=== PATIENT | female | born 1990 | race Caucasian/White ===

== ENCOUNTER → 2022-06-17 | Outpatient (CLI) | payer BC | END | disposition home or self-care (01) | LOC: LABWHC1 13:58 | PROVIDERS: ATTEND Obstetrics & Gynecology | DX: Z36.9 Encounter for antenatal screening, unspecified (principal) | CPT/HCPCS: 36415; 82950 ==

== ENCOUNTER 2022-09-26 14:09 | Inpatient (IN) | payer BC ==
[2022-10-01] MEDS: LACTATED RINGERS 1,000 ML IV SCH ×4 (06:28→22:00)
[2022-10-01] MEDS ORDERED: TRANEXAMIC ACID IN NACL,ISO-OS 1,000 MG in EMPTY BAG 1 BAG IV PRN ×2 (06:33→19:10)
[2022-10-01] MEDS ORDERED: METHYLERGONOVINE 0.2 MG/ML 1 ML AMP IM PRN ×2 (06:33→19:10)
[2022-10-01] MEDS ORDERED: LIDOCAINE 0.5% (PF) 5 MG/ML (50 ML SDV) SQ PRN (06:33)
[2022-10-01] MEDS ORDERED: miSOPROStoL 200 MCG TAB PO PRN ×2 (06:33→19:10)
[2022-10-01] MEDS ORDERED: OXYTOCIN 10 UNIT/ML 1 ML VIAL IM PRN ×2 (06:33→19:10)
[2022-10-01] MEDS ORDERED: TERBUTALINE 1 MG/ML VIAL SQ PRN (06:33)
[2022-10-01] MEDS ORDERED: CARBOPROST TROMETHAMINE 250 MCG/ML 1 ML AMP IM PRN ×2 (06:33→19:10)
[2022-10-01 06:42] LABS: Basophils # (A) 0.1 k/uL (0-0.2); Basophils % (A) 1 %; Eosinophils # (A) 0.4 k/uL (0-0.7); Eosinophils % (A) 3 %; HCT 37.2 % (34.0-46.0); HGB 12.8 gm/dL (11.4-16.0); Lymphocytes # (A) 2.4 k/uL (1.0-4.8); Lymphocytes % (A) 20 %; MCH 31.1 pg (25.0-35.0); MCHC 34.5 g/dL (31.0-37.0); Mean Platelet Volume 7.2; Monocytes # (A) 0.7 k/uL (0-1.0); Monocytes % (A) 6 %; Neutrophils # (A) 8.3 k/uL (1.3-7.7); Neutrophils % (A) 69 %; Platelet Count 277 k/uL (150-450); RBC 4.13 m/uL (3.80-5.40); RDW 13.5 % (11.5-15.5); WBC 12.1 k/uL (3.8-10.6)
[2022-10-01] MEDS ORDERED: OXYTOCIN 30 UNITS/500 ML NS 30 UNIT in SALINE 1 500ML.BAG IV SCH (06:45)
--- NOTE | 2022-10-01 08:05 | P.HPOB ---
History of Present Illness H&P Date: 10/01/22 Chief Complaint: Here for induction of labor at 40-4/7 weeks' This is a pleasant 32-year-old 1 para 0 EDC 09/27/2022 at 40-4/7 weeks' gestation who presents today for induction of labor. She is having mild irregular uterine contractions. She denies fluid leakage or vaginal bleeding. Fetus is been active throughout the . Current medications vitamins daily, baby aspirin daily. Past surgical history hysterosalpingogram in the past. Past medical history PCO OS. ALLERGIES none known. Family history significant for hypertension, arthritis, skin cancer, PCO OS. 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 history blood type is O+, rubella status immune. VDRL testing, urine culture, hepatitis B surface antigen, gonorrhea and chlamydia cultures, HIV testing, group B strep cultures all negative. One-hour Glucola 131. Estimated weight 43rd percentile. On exam patient is 5 foot 4 inches, 184 pounds, vital signs are stable and she is afebrile. General physical exam is within normal limits. Cervix is 1 cm dilated, 70% effaced, -2 station, vertex presentation. Artificial amniorrhexis reveals clear fluid. heart rate is consistent with reactive NST. Plan: 40-4/7 weeks intrauterine , here for induction of labor, all signs reassuring. Plan close maternal and surveillance. Oxytocin per hospital protocol. Analgesic options reviewed. Anticipate normal spontaneous vaginal delivery. Review of Systems Constitutional: Reports as per HPI Past Medical History Past Medical History: No Reported History History of Any Multi-Drug Resistant Organisms: None Reported Past Surgical History: No Surgical Hx Reported Past Psychological History: No Psychological Hx Reported Smoking Status: Never smoker Medications and Allergies Home Medications Medication Instructions Recorded Confirmed Type Aspirin [[place] Aspirin EC] 81 mg PO 10/01/22 History Vit No.179/Iron/Folic 1 each PO 10/01/22 History [ Tablet] Allergies Allergy/AdvReac Type Severity Reaction Status Date / Time No Known Allergies Allergy Verified 10/01/22 06:32 Exam Vital Signs Temp Pulse Resp BP Pulse Ox 10/01/22 06:31 97.2 F L 104 H 16 138/87 100 Intake and Output 09/30/22 10/01/22 10/01/22 22:59 06:59 14:59 Other: Weight 83.461 kg See dictation under HPI please Results Result Diagrams: 10/01/22 06:30 Abnormal Lab Results - Last 24 Hours (Table) 10/01/22 Range/Units 06:30 WBC 12.1 H (3.8-10.6) k/uL Neutrophils # 8.3 H (1.3-7.7) k/uL Assessment and Plan Assessment: 40-4/7 weeks intrauterine , here for induction of labor. All signs reassuring. Plan: Analgesic options thoroughly reviewed. Oxytocin per hospital protocol. Close maternal and surveillance. Anticipate normal spontaneous vaginal delivery. Time with Patient: Less than 30
[2022-10-01] MEDS ORDERED: BUTORPHANOL 2 MG/ML 1 ML VIAL IV PRN (08:28)
[2022-10-01] MEDS ORDERED: fentaNYL (PF) 50 MCG/ML 5 ML AMP ONE (14:27)
[2022-10-01] MEDS ORDERED: SODIUM CHLORIDE 0.9% 100 ML BAG ONE ×2 (14:27→18:52)
[2022-10-01] MEDS ORDERED: ROPIVACAINE 5 MG/ML 20 ML AMPULE ONE (14:27)
[2022-10-01] MEDS ORDERED: CITRIC ACID-SODIUM CITRATE 15 ML CUP PO ONE ×2 (18:41→19:10)
[2022-10-01] MEDS ORDERED: ceFAZolin 1,000 MG VIAL ONE (18:52)
[2022-10-01] MEDS ORDERED: MORPHINE SULFATE (PF) 0.3 MG/0.3 ML SYR ONE (18:52)
[2022-10-01] MEDS ORDERED: LIDOCAINE HCL/PF 20 MG/ML 10 ML AMP ONE (18:52)
[2022-10-01] MEDS ORDERED: METHYLERGONOVINE 0.2 MG/ML 1 ML AMP ONE (18:52)
[2022-10-01] MEDS ORDERED: KETOROLAC 30 MG/ML 1 ML VIAL ONE (18:52)
[2022-10-01] MEDS ORDERED: ONDANSETRON 4 MG/2 ML VIAL ONE (18:52)
[2022-10-01] MEDS ORDERED: OXYTOCIN 10 UNIT/ML 1 ML VIAL ONE (18:52)
--- NOTE | 2022-10-01 19:44 | P.OP ---
Date of Procedure: 10/01/22 Preoperative Diagnosis: 40-4/7 weeks intrauterine , arrest of dilatation and descent. Postoperative Diagnosis: Same, liveborn male , left occiput transverse, nuchal cord 1. Procedure(s) Performed: Primary low transverse section Anesthesia: epidural Surgeon: Karen Silva Rn Access #1: Kwaku Pires Estimated Blood Loss (ml): 650 IV fluids (ml): 1,000 Urine output (ml): 200 Pathology: none sent Condition: stable Disposition: PACU Indications for Procedure: Arrest of dilation for 4 hours, active labor, 40-4/7 weeks' Operative Findings: Liveborn male , 8 lbs. 4 oz., 3750 g, left occiput transverse position. Normal-appearing tubes and ovaries bilaterally. Nuchal cord 1 Description of Procedure: Patient is brought to the operating suite where the epidural previously placed was topped off. Vaginal prep is done, abdomen is prepped and draped in usual sterile fashion. Antibiotics given. The appropriate timeout is performed to assure the proper patient and procedural identification. Analgesia is checked and noted to be adequate. A low transverse skin incision is made in this is carried down through the subcutaneous tissue to the fascia. Fascia is isolated, scored, extended bilaterally with curved Mustafa scissors. Peritoneum is next identified and incised, there is no bowel or bladder involvement. Bladder blade is placed over the bladder to keep the bladder from the operative field. A low transverse uterine incision is made in this is extended bluntly. The 's head is delivered in the left occiput transverse position. There is a tight nuchal cord 1 that was reduced. The oropharynx, nasopharynx, and external nares were all bulb suctioned thoroughly. Patient was officially delivered of a liveborn male infant at 1904 hrs. Umbilical cord was doubly clamped and ligated, he was handed to waiting nurses for evaluation where scores of 9 and 9 at one and 5 minutes respectively were given. Placenta delivered manually, it was inspected and noted to be intact with trivascular cord at 1905 hrs. Uterus is then externalized and massaged. Oxytocin is given, however the uterus is still atonic and therefore Methergine was given 1 with excellent response. The uterus is swept clean with a sterile sponge to avoid any retained products of conception. It is closed in a two-step fashion, first layer running locking, second layer imbricated, both with 0 Vicryl suture. The uterus is suction posteriorly with the suction on guard and then gently placed back into the abdomen. Bilateral gutters are inspected and cleaned. Peritoneum was allowed to close by secondary intention. Fascia is closed in a running stitch of 0 Vicryl with over ligation in the midline. Subcutaneous tissue is irrigated, clean and dry. It is reapproximated with 2-0 Vicryl in a running stitch. 4-0 undyed Monocryl is used for final skin closure. Steri- Strips and Mastisol are applied to the wound. All sponge needle and enhancement counts are correct. Estimated blood loss 650 mL, fluid replacement 1000 mL, pulse 80, blood pressure 120/70. Duramorph is placed in the epidural prior to leaving the operative suite. Patient is requesting circumcision for her infant son.
[2022-10-01] MEDS ORDERED: diphenhydrAMINE 25 MG CAP PO PRN (19:45)
[2022-10-01] MEDS ORDERED: NALOXONE 0.4 MG/ML 1 ML VIAL IV PRN (19:45)
[2022-10-01] MEDS ORDERED: ONDANSETRON 4 MG/2 ML VIAL IVP PRN (19:45)
[2022-10-01] MEDS ORDERED: diphenhydrAMINE 50 MG CAP PO PRN (19:45)
[2022-10-01] MEDS ORDERED: diphenhydrAMINE 50 MG/ML 1 ML VIAL IVP PRN ×2 (19:45)
[2022-10-01] MEDS ORDERED: METOCLOPRAMIDE 5 MG/ML 2 ML VIAL IVP PRN (19:45)
[2022-10-01] MEDS ORDERED: ZOLPIDEM 5 MG TAB PO PRN (19:45)
[2022-10-01] MEDS: SENNOSIDES-DOCUSATE SODIUM 1 EACH TAB PO SCH (22:18)
[2022-10-01] MEDS: ACETAMINOPHEN TAB 500 MG TAB PO SCH (22:19)
[2022-10-02] MEDS: IBUPROFEN 600 MG TAB PO SCH ×4 (02:00→20:14)
[2022-10-02] MEDS: ACETAMINOPHEN TAB 500 MG TAB PO SCH ×4 (05:40→23:41)
[2022-10-02] MEDS: LACTATED RINGERS 1,000 ML IV SCH ×2 (05:55→13:34)
[2022-10-02 05:58] LABS: Basophils % (A) 0 %; Eosinophils # (A) 0.2 k/uL (0-0.7); Eosinophils % (A) 1 %; HCT 28.7 % (34.0-46.0); Lymphocytes # (A) 1.6 k/uL (1.0-4.8); Lymphocytes % (A) 13 %; MCH 30.5 pg (25.0-35.0); MCV 89.8 fL (80.0-100.0); Mean Platelet Volume 7.5; Monocytes # (A) 0.6 k/uL (0-1.0); Monocytes % (A) 5 %; Neutrophils # (A) 9.9 k/uL (1.3-7.7); Neutrophils % (A) 79 %; Platelet Count 218 k/uL (150-450); WBC 12.5 k/uL (3.8-10.6)
[2022-10-02 06:18] LABS: HGB 9.8 gm/dL (11.4-16.0)
[2022-10-02] MEDS: SENNOSIDES-DOCUSATE SODIUM 1 EACH TAB PO SCH ×2 (08:02→20:14)
--- NOTE | 2022-10-02 08:07 | P.PN ---
Subjective Progress Note Date: 10/02/22 Principal diagnosis: Doing well first postoperative day Slept well. Minimal pain. Minimal vaginal drainage. Positive flatus. Hungry Objective - Vital Signs Vital signs: Vital Signs Temp 97.9 F 10/02/22 04:00 Pulse 76 10/02/22 04:00 Resp 16 10/02/22 04:00 BP 110/71 10/02/22 04:00 Pulse Ox 98 10/02/22 04:00 FiO2 Intake & Output 10/01/22 10/02/22 10/02/22 18:59 06:59 18:59 Intake Total 100 Output Total 2915 Balance -2815 Intake: Intake, IV Titration 100 Amount Oxytocin 30 Units/500 ml 100 Ns 30 unit In Saline 1 500ml.bag @ Per Protocol IV .Q0M [facility] Rx#:[id number] Output: Urine 1650 Uretheral (Adan) 200 Output, Quantitative 1265 Blood Loss Other: Voiding Method Indwelling Catheter # Voids 2 350 - Constitutional General appearance: Present: average body habitus, cooperative - EENT Eyes: Present: PERRLA ENT: Present: hearing grossly normal - Neck Carotids: bilateral: upstroke normal - Respiratory Respiratory: bilateral: CTA - Cardiovascular Rhythm: regular - Gastrointestinal General gastrointestinal: Present: normal bowel sounds - Integumentary Integumentary: Present: normal - Neurologic Neurologic: Present: CNII-XII intact - Musculoskeletal Musculoskeletal: Present: gait normal, strength equal bilaterally - Psychiatric Psychiatric: Present: A&O x's 3, appropriate affect, intact judgment & insight - Labs CBC & Chem 7: 10/02/22 05:25 Labs: Abnormal Lab Results - Last 24 Hours (Table) 10/02/22 Range/Units 05:25 WBC 12.5 H (3.8-10.6) k/uL RBC 3.20 L (3.80-5.40) m/uL Hgb 9.8 L D (11.4-16.0) gm/dL Hct 28.7 L (34.0-46.0) % Neutrophils # 9.9 H (1.3-7.7) k/uL Assessment and Plan Assessment: Doing well first postoperative day Plan: Advance diet and activity. Circumcision this morning. Continue postoperative care. Likely discharge home tomorrow morning. Time with Patient: Less than 30
[2022-10-03] MEDS: IBUPROFEN 600 MG TAB PO SCH ×2 (01:24→07:39)
[2022-10-03] MEDS: ACETAMINOPHEN TAB 500 MG TAB PO SCH (05:51)
[2022-10-03] MEDS: SENNOSIDES-DOCUSATE SODIUM 1 EACH TAB PO SCH ×2 (07:39→08:06)
[2022-10-03 08:04] VITALS: BP 122/73; PULSE 92; RESP 18; TEMP 98
--- NOTE | 2022-10-03 08:40 | P.DS ---
Providers Date of admission: 10/01/22 06:07 Expected date of discharge: 10/03/22 Attending physician: Karen Silva Primary care physician: Stated None Hospital Course: This is a 32-year-old female 1 para 0 EDC 09/27/2022 at 40-4/7 weeks' gestation who presented for induction. remarkable for rubella status immune, group B strep cultures negative, blood type O positive. Please see dictated history and physical for details. Patient underwent a primary low transverse section after many hours of labor with arrest of cervical dilatation and descent. She gave to a liveborn male with scores of 9 and 9 at one and 5 minutes respectively. He was in the left occiput transverse position with a nuchal cord 1, weight 8 lbs. 4 oz. or 3750 g. Please see my dictated delivery note for details. This morning the patient is doing well. She is voiding, ambulating, passing flatus without difficulty. Vital signs are stable and she is afebrile. Incision is clean and dry, intact, Steri-Strips applied. Breast-feeding is going well. I have given her a prescription for a breast pump to be used as needed. She will utilize [id number] Advil or Aleve, or Motrin as needed for pain. She is to call with any fevers shakes or chills, foul smelling or copious lochia, with the passage of large blood clots, with any pain not alleviated by [id number] products, or indeed with any concerns. No driving, no intercourse, no heavy lifting. She will follow-up with me in the office in 2 weeks for incision check. Assessment: Doing well second postoperative day Patient Condition at Discharge: Good Plan - Discharge Summary Discharge Rx Participant: No New Discharge Prescriptions: No Action Vit No.179/Iron/Folic [ Tablet] 1 each PO Aspirin [[place] Aspirin EC] 81 mg PO Discharge Medication List Aspirin [[place] Aspirin EC] 81 mg PO 10/01/22 [History] Vit No.179/Iron/Folic [ Tablet] 1 each PO 10/01/22 [History] Follow up Appointment(s)/Referral(s): Karen Silva MD [STAFF PHYSICIAN] - 2 Weeks Discharge Disposition: HOME SELF-CARE
--- NOTE | 2022-10-03 10:34 | P.PN ---
Progress Note - Text 10/02/222019 pm 32-year-old female status post , she received Duramorph why the epidural catheter. Patient seen and evaluated for postop pain control, she has a VAS of 0 through the night with no complaints of nausea vomiting. She had mild pruritus which should subside soon.
== END 2022-10-03 10:30 | disposition home or self-care (01) | DRG 983 ==
LOC: 4FBP 10-01 06:07
PROVIDERS: ADMIT Obstetrics & Gynecology; ATTEND Obstetrics & Gynecology
PROC: 3E0DXGC Introduction of Other Therapeutic Substance into Mouth and Pharynx, External Approach (ICD-10-PCS; 2022-10-01)
PROC: 3E033VJ Introduction of Other Hormone into Peripheral Vein, Percutaneous Approach (ICD-10-PCS; 2022-10-01)
PROC: 10D00Z1 Extraction of Products of Conception, Low, Open Approach (ICD-10-PCS; principal; 2022-10-01 18:59)
DX: L29.9 Pruritus, unspecified (principal); O62.1 Secondary uterine inertia; E28.2 Polycystic ovarian syndrome; Z28.310 Unvaccinated for COVID-19; O69.81X0 Labor and delivery complicated by cord around neck, without compression, not applicable or unspecified; O99.284 Endocrine, nutritional and metabolic diseases complicating childbirth; O99.73 Diseases of the skin and subcutaneous tissue complicating the puerperium; O32.2XX0 Maternal care for transverse and oblique lie, not applicable or unspecified; Z37.0 Single live birth; Z3A.40 40 weeks gestation of pregnancy; Z79.82 Long term (current) use of aspirin; Z79.899 Other long term (current) drug therapy
CPT/HCPCS: 85025; 86850; 86900; 86901